=== PATIENT | female | born 1960 | race Caucasian/White ===

== ENCOUNTER 2021-07-05 13:15 | Emergency (ER) | payer OTHER, MEDICAID ==
[~2021-07-05] VITALS: Ht 149.9 cm; Wt 104.3 kg
[2021-07-05 13:20] VITALS: BP 130/80
--- NOTE | 2021-07-05 13:24 | NUR ---
Sandeep rivera in [facility] - 07/05/21 at 1331 by [email or web address] ATTEMPTED TO CALL PT, NO ANSWER AT THIS TIME
--- NOTE | 2021-07-05 13:52 | NUR ---
LAB BEDSIDE COLLECTING BLOOD WORK FROM PT
--- NOTE | 2021-07-05 13:58 | NUR ---
60 Y FEMALE BIBA DUE TO C/O OF ADBOMINAL PAIN, EPIGASTRIC PAIN FOR LAST 30 MIN. PT STATES PAIN IS CURRENTLY 10/10 THAT IS A SHARP/BURNING FEELING. PT EXPERICNING +N/-V. UPON ASSESSMENT BOWEL SOUNDS ARE ACTIVE, BUT UPON PALPATION PT HAS SOME TENDERNESS ON LLQ. PMH: HTN, PANCREATITIS NKA
[2021-07-05 14:02] LABS: BASOPHILS # (AUTO) 0.1 K/uL (0.00-0.22); BASOPHILS % (AUTO) 1.3 % (0.0-2.0); EOSINOPHILS # (AUTO) 0.3 K/uL (0-0.4); EOSINOPHILS % (AUTO) 4.4 % (0.0-4.0); LYMPHOCYTES # (AUTO) 2.1 K/uL (2.5-16.5); LYMPHOCYTES % (AUTO) 26.6 % (20.5-51.1); MEAN CORPUSCULAR HEMOGLOBIN 29 pg (27-31); MEAN CORPUSCULAR HGB CONC 33 g/dL (33-37); MEAN CORPUSCULAR VOLUME 89.2 fL (80-94); MONOCYTES # (AUTO) 0.4 K/uL (0.8-1.0); NEUTROPHILS # (AUTO) 4.9 K/uL (1.8-7.7); NEUTROPHILS % (AUTO) 62.7 % (42.2-75.2); PLATELET COUNT (AUTO) 207 K/uL (140-450); RED BLOOD CELL COUNT(AUTO) 5.15 MIL/uL (4.20-5.40); WHITE BLOOD COUNT (AUTO) 7.8 K/uL (4.8-10.8)
--- NOTE | 2021-07-05 14:08 | NUR ---
SAID BEDSIDE EVALUATING PT
[2021-07-05] MEDS ORDERED: FAMOTIDINE 20 MG TAB PO ONE (14:10)
[2021-07-05] MEDS ORDERED: DICYCLOMINE HCL LIQUID 20 MG, ALUMINUM HYD/MAG/SIMETHICONE 30 ML, LIDOCAINE VISCOUS 2% ... PO ONE ×3 (14:10)
[2021-07-05] MEDS ORDERED: ONDANSETRON 4 MG ODT PO ONE (14:10)
--- NOTE | 2021-07-05 14:20 | NUR ---
XRAY BEDSIDE WITH PT
[2021-07-05 14:21] LABS: ALBUMIN 3.4 g/dL (3.4-5.0); ANION GAP 9.6 (8-16); CARBON DIOXIDE 25.5 mmol/L (21-32); CREATININE 0.7 mg/dL (0.6-1.3); POTASSIUM 4.1 mmol/L (3.5-5.1); TOTAL BILIRUBIN 0.5 mg/dL (0.0-1.0)
[2021-07-05] MEDS ORDERED: DICYCLOMINE HCL LIQUID 10 MG/5 ML UDC ONE (14:29)
[2021-07-05] MEDS ORDERED: ALUMINUM HYD/MAG/SIMETHICONE 30 ML UDC ONE (14:29)
[2021-07-05 14:58] LABS: BILIRUBIN,URINE NEGATIVE (NEGATIVE); BLOOD, URINE NEGATIVE (NEGATIVE); COLOR,URINE YELLOW (YELLOW); LEUKOCYTE ESTERASE ,URINE 1+ (NEGATIVE); NITRITE, URINE NEGATIVE (NEGATIVE); PH,URINE 5.5 (5.0-9.0); UGLUCOSE NEGATIVE (NEGATIVE)
[2021-07-05 15:04] LABS: APPEARANCE,URINE HAZY (CLEAR)
[2021-07-05] MEDS ORDERED: ONDA-24 SL (15:16)
[2021-07-05] MEDS ORDERED: FAMO-92 PO (15:16)
[2021-07-05] MEDS ORDERED: SUCR1TAB35 PO (15:16)
[2021-07-05 15:25] VITALS: BP 109/66
[2021-07-05 15:25] LABS: RBC,URINE NONE SEEN /HPF (0-5)
--- NOTE | 2021-07-05 15:26 | NUR ---
Patient discharged with v/s stable. Written and verbal after care instructions ABOUT ABDOMINAL PAIN given and explained. Patient alert, oriented and verbalized understanding of instructions. Ambulatory with steady gait. All questions addressed prior to discharge. ID band removed. Patient advised to follow up with PMD. Rx of PEPCID, ZOFRAN, AND CARAFATE given. Patient educated on indication of medication including possible reaction and side effects. Opportunity to ask questions provided and answered.
== END 2021-07-05 15:26 | disposition home or self-care (01) ==
LOC: MED 13:15
DX: R10.13 Epigastric pain (principal); R11.2 Nausea with vomiting, unspecified; R78.4 Finding of other drugs of addictive potential in blood
CPT/HCPCS: 36415; 71045; 80053; 81001; 83690; 84484; 85025; 87086; 93005; 99285; Q0162; Q0092

== ENCOUNTER 2022-04-06 18:27 | Emergency (ER) | payer OTHER, MEDICAID ==
[~2022-04-06] VITALS: Ht 149.9 cm; Wt 110.2 kg
[~2022-04-06 18:27] MED LIST: FAMO-92 PO; ONDA-188 SL; SUCR1TAB35 PO
[2022-04-06 18:41] VITALS: BP 125/57
[2022-04-06] MEDS ORDERED: ONDANSETRON 4 MG/2 ML VIAL IVP ONE (18:50)
[2022-04-06] MEDS ORDERED: NACL 0.9% 1,000 ML IV ONE (18:50)
[2022-04-06] MEDS ORDERED: KETOROLAC 30 MG/ML VIAL IVP ONE (18:50)
--- NOTE | 2022-04-06 18:54 | NUR ---
61/F C/O GENERALIZED BODY ACHES, HEADACHE AND N/V SINCE YESTERDAY. PATIENT A&OX4, AMBULATORY WITH WALKER, STATES SYMPTOMS +CHEST PAIN +ABDOMINAL PAIN +VOMITING 1 EPISODE BEGAN YESTERDAY. STATES LEFT SIDED CHEST PAIN 10/10, SHARP/CONSTANT, NON-RADIATING. DENIES FEVER, CHILLS, BLURRY VISION, SOB. STATES TAKING PRESCRIBED MEDS. SAMPLE SELECTOR IN PLACE. BED LOCKED IN LOWEST POSITION, SIDE RAILS X 1. PMH: ARTHRITIS, HTN, KNEE ISSUES MEDS: CARVEDILOL, LISINOPRIL, FAMOTIDINE, GABAPENTIN, NORCO, VITAMIN D2 SX: CHOLECYSTECTOMY, HERNIA REPAIR, LEFT BREAST MASS REMOVAL (NON-CANCEROUS) ALLERGIES: NKA
--- NOTE | 2022-04-06 18:54 | NUR ---
Patient ambulated to bed 12 with walker. Urine sample collected.
--- NOTE | 2022-04-06 19:16 | NUR ---
Report and transfer of care endorsed to GODWIN Crocker.
--- NOTE | 2022-04-06 19:16 | NUR ---
Report received from GODWIN Moe. Continuity of pt care at this time.
--- NOTE | 2022-04-06 19:31 | NUR ---
pt laying in bed locked in lowest position w x1 siderail up. pt reports ongoing headache, and generlized body pains worse pain being headhache, abdominal pain, and chest pain. pt denies sob, or ongoing n/v. pt recently medicated for pain. ermd aware of pt status. breathing even and unlabored. will continue to monitror.
[2022-04-06] MEDS ORDERED: MORPHINE SULFATE 4 MG/ML SYR IVP ONE (19:45)
[2022-04-06] MEDS ORDERED: ONDA8TAB87 PO (20:27)
--- NOTE | 2022-04-06 20:33 | NUR ---
PT REPORTS RELIEF OF PAIN, NO NAUSEA, REPORTS FEELING MUCH BETTER.
[2022-04-06 20:35] VITALS: BP 114/47
== END 2022-04-06 20:35 | disposition home or self-care (01) ==
LOC: MED 18:27
DX: R10.84 Generalized abdominal pain (principal); R11.2 Nausea with vomiting, unspecified; R19.7 Diarrhea, unspecified; R51.9 Headache, unspecified; M79.18 Myalgia, other site; M54.2 Cervicalgia; I10 Essential (primary) hypertension; M06.9 Rheumatoid arthritis, unspecified; F17.200 Nicotine dependence, unspecified, uncomplicated; Z90.49 Acquired absence of other specified parts of digestive tract; Z96.651 Presence of right artificial knee joint; Z96.652 Presence of left artificial knee joint; Z98.890 Other specified postprocedural states; Z79.899 Other long term (current) drug therapy
CPT/HCPCS: 81002; 96361; 96374; 96375; 99284; J1885; J2270; J2405; J7030